=== PATIENT | male | born 1980 | race African-American/Black ===

== ENCOUNTER 2017-08-09 10:21 | Emergency (ER) | payer SELFPAY ==
[2017-08-09 10:39] VITALS: BP 143/76
--- NOTE | 2017-08-09 11:36 | UC ---
Complaint Male HPI - HPI Summary HPI Summary: Patient presents with an unremarkable past medical history. He presents today with complaints of small amount of hematuria. He denies any fever, chills, nausea, vomiting, dysuria, abnormal penile discharge, abdominal pain, testicular pain or injury. He states no recent trauma. - History of Current Complaint Chief Complaint: UCGU Stated Complaint: BLOOD IN URINE Time Seen by Provider: 08/09/17 10:51 Hx Obtained From: Patient Onset/Duration: Sudden Onset, Lasting Minutes Timing: Intermittent Severity Initially: Mild Location: None Associated Signs And Symptoms: Positive: Negative - Allergies/Home Medications Allergies/Adverse Reactions: Allergies Allergy/AdvReac Type Severity Reaction Status Date / Time No Known Allergies Allergy Verified 08/09/17 10:39 PMH/Surg Hx/FS Hx/Imm Hx Previously Healthy: Yes - Surgical History Surgical History: Yes Surgery Procedure, Year, and Place: 2 eye surgery, detached retna and cataract - Family History Known Family History: Positive: None - Social History Occupation: Employed Full-time Lives: Alone Alcohol Use: Occasionally Substance Use Type: Marijuana Smoking Status (MU): Light Every Day Tobacco Smoker Review of Systems Constitutional: Negative Skin: Negative Eyes: Negative ENT: Negative Respiratory: Negative Cardiovascular: Negative Gastrointestinal: Negative Genitourinary: Hematuria Motor: Negative Neurovascular: Negative Musculoskeletal: Negative Neurological: Negative Psychological: Negative Is Patient Immunocompromised?: No All Other Systems Reviewed And Are Negative: Yes Physical Exam Triage Information Reviewed: Yes Appearance: Well-Appearing Vital Signs: Initial Vital Signs Temp 99.3 F 08/09/17 10:35 Pulse 73 08/09/17 10:35 Resp 16 08/09/17 10:35 BP 143/76 08/09/17 10:35 Pulse Ox 100 08/09/17 10:35 Vital Signs Reviewed: Yes Eye Exam: Normal ENT Exam: Normal Neck exam: Normal Neck: Positive: 1 Respiratory Exam: Normal Cardiovascular Exam: Normal Abdominal Exam: Normal Skin Exam: Normal Complaint Male Course/Dx - Course Course Of Treatment: Patient presents with an unremarkable past medical history. He presents today with nontraumatic hematuria. UA was positive for leukocytes and blood. He was treated with Cipro 500 mg by mouth twice daily for 10 days. I also have referred him to a Urologist. He had normal vital signs, and a temp of 99,seconday to his UTI, Urine gc/ct is pending. but nontoxic appearace. Dischraged home in stable condition. - Differential Dx/Diagnosis Differential Diagnosis/HQI/PQRI: Urinary Tract Infection Provider Diagnoses: uti Discharge - Discharge Plan Condition: Stable Disposition: HOME Prescriptions: Ciprofloxacin TAB* [Cipro 500 MG TAB*] 500 mg PO BID #20 tab Patient Education Materials: Urinary Tract Infection in Men (ED) Referrals: No Primary Care Phys,NOPCP [Primary Care Provider] - Brayden Enriquez MD [Medical Doctor] -
== END 2017-08-09 11:34 | disposition home or self-care (01) ==
LOC: UCEAST 10:21
DX: N39.0 Urinary tract infection, site not specified (principal); Z72.89 Other problems related to lifestyle; Z72.0 Tobacco use; F12.90 Cannabis use, unspecified, uncomplicated
CPT/HCPCS: 81003; 87086; 87491; 87591; 99212; G0463